=== PATIENT | female | born 2000 | race American Indian/Alaskan Native ===

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

== ENCOUNTER 2021-03-03 08:33 | Emergency (ER) | payer SELFPAY ==
--- NOTE | 2021-03-03 08:46 | EDM.PDOC ---
ED HPI GENERAL MEDICAL PROBLEM - General Chief Complaint: ENT Problem Stated Complaint: TOOTH ACHE Time Seen by Provider: 03/03/21 08:44 Source of Information: Reports: Patient, RN, RN Notes Reviewed History Limitations: Reports: No Limitations - History of Present Illness INITIAL COMMENTS - FREE TEXT/NARRATIVE: Pt presents to ER with c/o a toothache. Pt states she has a dental cap or implant at the left upper incisor, and it became painful yesterday. She denies swelling or redness to the face. Pt rates the pain 10/10. Onset: Gradual Duration: Constant Location: Reports: Other (Dental) Quality: Reports: Ache, Throbbing Severity: Moderate Improves with: Reports: None Worsens with: Reports: Eating Associated Symptoms: Reports: No Other Symptoms Left Tooth/Teeth Pain Score (Numeric/FACES): 10 - Related Data Allergies Allergy/AdvReac Type Severity Reaction Status Date / Time No Known Allergies Allergy Verified 03/03/21 08:50 Home Meds: Home Meds . 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 - Infectious Disease History Infectious Disease History: Reports: None - Past Surgical History Head Surgeries/Procedures: Reports: None HEENT Surgical History: Reports: None GI Surgical History: Reports: None Female Surgical History: Reports: None Neurological Surgical History: Reports: None Musculoskeletal Surgical History: Reports: Other (See Below) Other Musculoskeletal Surgeries/Procedures:: tendon repair RFA Social & Family History - Family History Family Medical History: No Pertinent Family History Hematologic: Reports: None - Caffeine Use Caffeine Use: Reports: None - Living Situation & Occupation Living situation: Reports: with Family ED ROS ENT - Review of Systems Review Of Systems: Comprehensive ROS is negative, except as noted in HPI. ED EXAM, ENT - Physical Exam Exam: See Below Exam Limited By: No Limitations General Appearance: Alert, WD/WN, No Apparent Distress Nose: Normal Inspection Mouth/Throat: Normal Lips, Normal Oropharynx, Dental Pain (Left maxillary incisor), Dental Tenderness (Left maxillary incisor), Gum Swelling Head: Atraumatic, Normocephalic Neck: Normal Inspection, Full Range of Motion. No: Lymphadenopathy (L), Lymphadenopathy (R) Respiratory/Chest: No Respiratory Distress Neurological: Alert, Oriented, No Motor/Sensory Deficits Course - Vital Signs Last Recorded V/S: Last Vital Signs Temp 98.8 F 03/03/21 08:43 Pulse 81 03/03/21 08:43 Resp 18 03/03/21 08:43 BP 146/87 H 03/03/21 08:43 Pulse Ox 99 03/03/21 08:43 - Orders/Labs/Meds Meds: Medications Discontinued Medications Generic Name Dose Route Start Last Admin Trade Name Freq PRN Reason Stop Dose Admin Acetaminophen/Codeine Phosphate 1 tab 03/03/21 08:49 Acetaminophen/Codeine 300-30 Mg Tab PO 03/03/21 08:50 ONETIME ONE Clindamycin HCl 300 mg 03/03/21 08:48 Clindamycin Hcl 150 Mg Cap PO 03/03/21 08:49 ONETIME ONE Lidocaine HCl 15 ml 03/03/21 08:48 Lidocaine 2% Viscous Solution 15 Ml Cup PO 03/03/21 08:49 ONETIME ONE Departure - Departure Time of Disposition: 08:52 Disposition: Home, Self-Care 01 Condition: Good Clinical Impression: Toothache, Dental abscess - Discharge Information *PRESCRIPTION DRUG MONITORING PROGRAM REVIEWED*: No *COPY OF PRESCRIPTION DRUG MONITORING REPORT IN PATIENT JEANNIE: No Instructions: Dental Pain Forms: ED Department Discharge Additional Instructions: Rx: Clindamycin 300mg Rx: Tylenol Codeine #3 Rx: Viscous Lidocaine 2% Follow up with a dentist at the first available appointment. Sepsis Event Note (ED) - Focused Exam Vital Signs: Vital Signs Temp Pulse Resp BP Pulse Ox 03/03/21 08:43 98.8 F 81 18 146/87 H 99
[2021-03-03] MEDS ORDERED: Lidocaine 2% Viscous Solution 15 ML Cup PO ONE (08:48)
[2021-03-03] MEDS ORDERED: Clindamycin HCl 150 MG Cap PO ONE (08:48)
[2021-03-03] MEDS ORDERED: Acetaminophen/Codeine 300-30 MG Tab PO ONE (08:49)
[2021-03-03 08:51] VITALS: BP 146/87; PULSE 81
== END 2021-03-03 09:00 | disposition home or self-care (01) ==
LOC: DL.ED 08:33
DX: K04.7 Periapical abscess without sinus (principal)
CPT/HCPCS: 99282; A9270

== ENCOUNTER 2021-07-30 09:22 | Emergency (ER) | payer MEDICAID ==
[2021-07-30] MEDS ORDERED: metroNIDAZOLE 250 MG Tab PO ONE ×2 (09:23→10:47)
[2021-07-30 09:40] VITALS: BP 103/69; PULSE 113
[2021-07-30 10:08] LABS: BARBITURATES,URINE NEGATIVE (NEGATIVE); BENZODIAZEPINE,URINE NEGATIVE (NEGATIVE); MDMA (ECSTASY), URINE NEGATIVE (NEGATIVE); METHADONE,URINE NEGATIVE (NEGATIVE); METHAMPHETAMINES,URINE NEGATIVE (NEGATIVE); OPIATES,URINE NEGATIVE (NEGATIVE); TCA,URINE NEGATIVE (NEGATIVE)
[2021-07-30 10:09] LABS: AMPHETAMINES,URINE NEGATIVE (NEGATIVE); OXYCODONE,URINE NEGATIVE (NEGATIVE); PHENCYCLIDINE,URINE NEGATIVE (NEGATIVE)
[2021-07-30 10:25] LABS: ANION GAP 11.7 mEq/L (7-13); CHLORIDE,CL 104 mmol/L (98-107); SODIUM,NA 138 mmol/L (136-145)
[2021-07-30] MEDS ORDERED: Fluconazole 100 MG Tab PO ONE (10:45)
[2021-07-30] MEDS ORDERED: metroNIDAZOLE 250 MG Tab ONE (11:01)
== END 2021-07-30 11:10 | disposition home or self-care (01) ==
LOC: DL.ED 09:22
DX: B37.3 Candidiasis of vulva and vagina (principal)
CPT/HCPCS: 36415; 80053; 80305; 80307; 81001; 81025; 82150; 83605; 83690; 83735; 85025; 86140; 87086; 99284; A9270; 99283

== ENCOUNTER 2021-07-30 20:44 | Emergency (ER) | payer MEDICAID | END 2021-07-30 22:30 | disposition left against medical advice (07) | LOC: DL.ED 20:44 | DX: Z53.21 Procedure and treatment not carried out due to patient leaving prior to being seen by health care provider (principal) ==

== ENCOUNTER 2021-08-01 09:51 | Emergency (ER) | payer MEDICAID ==
[2021-08-01 10:13] VITALS: BP 120/82; PULSE 63
[2021-08-01] MEDS ORDERED: Ondansetron 4 MG/2 ML SDV IVPUSH ONE (10:37)
[2021-08-01 10:56] LABS: ANION GAP 13.6 mEq/L (7-13); CHLORIDE,CL 105 mmol/L (98-107); SODIUM,NA 143 mmol/L (136-145)
[2021-08-01 11:04] LABS: AMPHETAMINES,URINE NEGATIVE (NEGATIVE); BARBITURATES,URINE NEGATIVE (NEGATIVE); BENZODIAZEPINE,URINE NEGATIVE (NEGATIVE); MDMA (ECSTASY), URINE NEGATIVE (NEGATIVE); METHADONE,URINE NEGATIVE (NEGATIVE); METHAMPHETAMINES,URINE NEGATIVE (NEGATIVE); OPIATES,URINE NEGATIVE (NEGATIVE); OXYCODONE,URINE NEGATIVE (NEGATIVE); PHENCYCLIDINE,URINE NEGATIVE (NEGATIVE); TCA,URINE NEGATIVE (NEGATIVE)
[2021-08-01 11:05] LABS: CORONAVIRUS COVID-19 NAA NEGATIVE (NEGATIVE)
[2021-08-01 11:05] LABS: ACETAMINOPHEN 0 ug/mL (10-30 (Therapeutic))
[2021-08-01] MEDS ORDERED: Sodium Chloride 0.9% 1,000 ML IV ONE (11:45)
[2021-08-01] MEDS ORDERED: GI Cocktail Oral Solution 30 ML PO ONE (11:46)
[2021-08-01] MEDS ORDERED: Metoclopramide 10 MG/2 ML SDV IVPUSH ONE (11:58)
[2021-08-01] MEDS ORDERED: Pantoprazole 40 MG Vial IVPUSH ONE (12:01)
== END 2021-08-01 13:23 | disposition home or self-care (01) ==
LOC: DL.ED 09:51
DX: R10.13 Epigastric pain (principal); Z79.899 Other long term (current) drug therapy; Z20.822 Contact with and (suspected) exposure to COVID-19
CPT/HCPCS: 0240U; 36415; 80053; 80143; 80179; 80305; 81001; 81025; 82150; 83605; 83690; 84484; 85025; 87086; 93005; 96374; 96375; 99285; A9270; C9113; J2405; J2765; J7030; 93010; 99282

== ENCOUNTER 2022-07-27 22:20 | Emergency (ER) | payer MEDICAID ==
[2022-07-27 23:01] VITALS: BP 109/85; PULSE 75
== END 2022-07-27 23:36 | disposition home or self-care (01) ==
LOC: DL.ED 22:20
DX: L50.9 Urticaria, unspecified (principal)
CPT/HCPCS: 99282

== ENCOUNTER 2022-12-31 20:03 | Emergency (ER) | payer SELFPAY ==
[2022-12-31 20:18] VITALS: BP 124/80; PULSE 80
[2022-12-31] MEDS ORDERED: Clindamycin HCl 150 MG Cap PO ONE (20:51)
[2022-12-31] MEDS ORDERED: Take Home: Doxycycline 100 MG Cap, 4 Cap Pack PO ONE (20:52)
[2022-12-31] MEDS ORDERED: Ketorolac 30 MG/ML SDV IM ONE (20:53)
[2022-12-31] MEDS ORDERED: Doxycycline Monohydrate 100 MG Cap PO ONE (21:04)
[2022-12-31 21:24] LABS: HCG QUALITATIVE,SERUM NEGATIVE (NEGATIVE)
[2022-12-31 21:54] LABS: APPEARANCE,URINE CLEAR (CLEAR); BILIRUBIN,URINE NEGATIVE (NEGATIVE); COLOR,URINE YELLOW (YELLOW); GLUCOSE,URINE NEGATIVE (NEGATIVE); KETONES,URINE NEGATIVE (NEGATIVE); LEUKOCYTE ESTERASE,URINE NEGATIVE (NEGATIVE); NITRITE,URINE NEGATIVE (NEGATIVE); OCCULT BLOOD,URINE NEGATIVE (NEGATIVE); PROTEIN,URINE NEGATIVE (NEGATIVE); UROBILINOGEN,URINE 0.2 mg/dL (0.2-1.0)
[2023-01-02 10:46] LABS: C.TRACHOMATIS BY TMA Positive (Negative); N.GONORRHOEAE BY TMA Negative (Negative); SOURCE URINE
== END 2022-12-31 22:22 | disposition home or self-care (01) ==
LOC: DL.ED 20:03
DX: H65.03 Acute serous otitis media, bilateral (principal); L98.9 Disorder of the skin and subcutaneous tissue, unspecified; K00.7 Teething syndrome; F17.210 Nicotine dependence, cigarettes, uncomplicated; Z20.2 Contact with and (suspected) exposure to infections with a predominantly sexual mode of transmission
CPT/HCPCS: 36415; 81003; 84703; 86592; 86803; 87389; 87491; 87591; 96372; 99283; 99284; A9270-GY; J1885